=== PATIENT | male | born 1930 | race Caucasian/White ===

== ENCOUNTER 2018-01-31 08:20 | Inpatient (IN) | payer MEDICARE, OTHER ==
[2018-01-31] MEDS: IODIXANOL 320 MG/ML 10 ML VIAL (for Rad CT) IVCONTRAST (08:21)
[2018-01-31 09:17] LABS: AUTOMATED NEUTROPHIL # 15.5 TH/MM3 (1.8-7.7); BASOPHIL # 0.1 TH/MM3 (0-0.2); BASOPHIL % 0.6 % (0.0-2.0); EOSINOPHIL % 0.2 % (0.0-4.0); HEMATOCRIT 47.2 % (39.0-51.0); HEMO FLAGS DIFF FINAL; HEMOGLOBIN 15.4 GM/DL (13.0-17.0); LYMPH % 4.7 % (9.0-44.0); LYMPHOCYTE # 0.8 TH/MM3 (1.0-4.8); MEAN CELL VOLUME 95.4 FL (80.0-100.0); MEAN CORPUSCULAR HEMOGLOBIN 31.2 PG (27.0-34.0); MEAN CORPUSCULAR HGB CONC 32.7 % (32.0-36.0); MEAN PLATELET VOLUME 8.8 FL (7.0-11.0); MONOCYTE # 0.5 TH/MM3 (0-0.9); NEUT % 91.5 % (16.0-70.0); PLATELET COUNT 215 TH/MM3 (150-450); RED BLOOD COUNT 4.94 MIL/MM3 (4.50-5.90); RED CELL DISTRIBUTION WIDTH 15.2 % (11.6-17.2)
[2018-01-31 09:31] LABS: ALBUMIN 3.3 GM/DL (3.4-5.0); ANION GAP 15 MEQ/L (5-15); AST (GOT) 53 U/L (15-37); BICARBONATE 18.1 MEQ/L (21.0-32.0); BLOOD UREA NITROGEN 37 MG/DL (7-18); CALCIUM 9.2 MG/DL (8.5-10.1); CHLORIDE 113 MEQ/L (98-107); CREATININE 1.76 MG/DL (0.60-1.30); GLOMERULAR FILTRATION RATE 37 ML/MIN (>89); GLUCOSE,RANDOM 221 MG/DL (74-106); SODIUM (NA) 146 MEQ/L (136-145)
[2018-01-31 09:32] LABS: ALT (GPT) 27 U/L (12-78)
[2018-01-31 09:35] LABS: ALKALINE PHOSPHATASE 101 U/L (45-117); CREATINE KINASE 443 U/L (39-308); TOTAL BILIRUBIN ADULT 0.3 MG/DL (0.2-1.0); TOTAL PROTEIN 7.3 GM/DL (6.4-8.2)
[2018-01-31] MEDS: SODIUM CHLOR 0.9% 1000 ML INJ 1,000 ML IV (09:44)
[2018-01-31 09:54] LABS: B-TYPE NATRIURETIC PEPTIDE 174 PG/ML (0-100)
[2018-01-31 09:57] LABS: CKMB 26.6 NG/ML (0.5-3.6)
[2018-01-31 10:00] LABS: TROPONIN I 2.57 NG/ML (0.02-0.05)
[2018-01-31 10:00] LABS: LACTIC ACID SEPSIS PROTOCOL 6.7 mmol/L (0.4-2.0)
[2018-01-31 10:25] LABS: BACTERIA, URINE OCC /hpf; BILIRUBIN, URINE NEG (NEG); BLOOD, URINE NEG (NEG); COMMENT (UR) CATH-CULTURE IND; CULTURE IF INDICATED CATH CULTURE IND; GLUCOSE,URINE NEG (NEG); HYALINE CAST, URINE 2 /lpf (RARE); KETONE, URINE NEG (NEG); MUCUS URINE FEW /lpf (OCC); NITRITE,URINE POS (NEG); SQUAMOUS EPITHELIAL CELL URINE <1 /hpf (0-5); URINE COLOR YELLOW (YELLW/STRAW); URINE LEUKOCYTE ESTERASE LARGE (NEG)
[2018-01-31] MEDS ORDERED: HEPARIN-D5W 25,000 U/250 ML 250 ML IV (10:30)
[2018-01-31] MEDS: cefTRIAXone INJ 1,000 MG in SODIUM CHLORIDE 0.9% INJ 100 ML IV (10:41)
[2018-01-31] MEDS: ASPIRIN 81 MG CHEW TAB CHEW (10:41)
[2018-01-31 10:43] LABS: PROTHROMBIN TIME - PATIENT 10.6 SEC (9.8-11.6)
[2018-01-31 11:08] LABS: LACTIC ACID GHOST NOT REPORTABLE
[2018-01-31] MEDS: HEPARIN SODIUM - IV 10,000 UNITS/10 ML VIAL IV PUSH (11:34)
[2018-01-31] MEDS: HEPARIN-D5W 25,000 U/250 ML 250 ML IV (11:36)
[2018-01-31 11:39] LABS: BLOOD GAS BASE EXCESS -2.6 mmol/L (-2-2); BLOOD GAS CARBOXYHEMOGLOBIN 1.1 % (0-4); BLOOD GAS HCO3 21 mmol/L (22-26); BLOOD GAS METHEMOGLOBIN 0.7 % (0-2); BLOOD GAS O2 HGB SATURATION 89 % (90-100); BLOOD GAS OXYGEN CONTENT 17.9 Vol % (12.0-20.0); BLOOD GAS PCO2 35 mmHg (38-42); BLOOD GAS PO2 59 mmHG (61-120); BLOOD GAS TOTAL HGB 14.3 G/DL (12.0-16.0); CRITICAL VALUE YES; DRAW SITE LT RADIAL; FIO2 100 %; LITER FLOW 15 L/M; NUMBER OF ARTERIAL PUNCTURES 1; STAT YES; TEMP CORR TO 98.6; ULNAR PULSE PRESENT
[2018-01-31] MEDS ORDERED: SODIUM CHLOR 0.9% 1000 ML INJ 1,000 ML IV (12:18)
[2018-01-31] MEDS: AZITHROMYCIN INJ 500 MG in SODIUM CHLOR 0.9% 250 ML INJ 250 ML IV (12:21)
[2018-01-31] MEDS: RESP: ALBUTEROL 2.5 MG/IPRATROPIUM 0.5 MG NEB (SCH) NEB ×5 (12:30→23:52)
[2018-01-31] MEDS ORDERED: CHLORHEXIDINE GLUCONATE 2 % 1 PACK (2 CLOTHS) TOP (12:30)
[2018-01-31] MEDS ORDERED: RESP: ALBUTEROL 2.5 MG/IPRATROPIUM 0.5 MG NEB (PRN) INH (12:30)
[2018-01-31] MEDS ORDERED: NURSING INFORMATION XX (12:30)
[2018-01-31] MEDS ORDERED: MORPHINE SULFATE 4 MG/ML INJ IV PUSH (12:30)
[2018-01-31 12:46] LABS: HEMATOCRIT 45.7 % (39.0-51.0); HEMOGLOBIN 15.1 GM/DL (13.0-17.0); MEAN CELL VOLUME 94.5 FL (80.0-100.0); MEAN CORPUSCULAR HEMOGLOBIN 31.1 PG (27.0-34.0); MEAN PLATELET VOLUME 8.7 FL (7.0-11.0); PLATELET COUNT 221 TH/MM3 (150-450); RED BLOOD COUNT 4.84 MIL/MM3 (4.50-5.90); RED CELL DISTRIBUTION WIDTH 14.8 % (11.6-17.2); REVIEW FLAG FINAL; WHITE BLOOD COUNT 19.7 TH/MM3 (4.0-11.0)
[2018-01-31 13:03] LABS: LACTIC ACID SEPSIS REPEAT 2.4 mmol/L (0.4-2.0)
[2018-01-31 13:05] LABS: INTERNATIONAL NORMALIZED RATIO 1.1 RATIO; PROTHROMBIN TIME - PATIENT 10.8 SEC (9.8-11.6)
[2018-01-31] MEDS: ESMOLOL DRIP INJ PREMIX 250 ML IV (13:27)
[2018-01-31] MEDS ORDERED: LABETALOL HCL 100 MG/20 ML VIAL IV PUSH (14:00)
[2018-01-31] MEDS: MORPHINE SULFATE 4 MG/ML INJ IV PUSH (14:16)
[2018-01-31] MEDS: FUROSEMIDE 40 MG/4 ML VIAL IV PUSH ×2 (14:16→16:34)
[2018-01-31 14:39] LABS: CREATINE KINASE 2602 U/L (39-308)
[2018-01-31] MEDS: METOPROLOL TARTRATE 25 MG TAB PO ×3 (14:45→21:00)
[2018-01-31] MEDS ORDERED: DIGOXIN 0.5 MG/2 ML VIAL IV PUSH (15:00)
[2018-01-31 15:05] LABS: CKMB 313.2 NG/ML (0.5-3.6)
[2018-01-31 15:33] LABS: TROPONIN I GREATER THAN 40.00 NG/ML (0.02-0.05)
[2018-01-31] MEDS: DEXMEDETOMIDINE INJ 200 MCG in SODIUM CHLORIDE 0.9% INJ 50 ML IV ×2 (16:00→19:57)
[2018-01-31] MEDS: INSULIN ASPART SUPPLEMENTAL SCALE SQ ×2 (16:00→20:00)
[2018-01-31] MEDS ORDERED: HEPARIN SODIUM - IV 10,000 UNITS/10 ML VIAL IV PUSH ×2 (16:30)
[2018-01-31] MEDS: PHENYLEPHRINE HCL 10 MG/ML VIAL (16:57)
[2018-01-31] MEDS ORDERED: TERBUTALINE INJ 1 MG/ML AMP SQ (17:00)
[2018-01-31] MEDS ORDERED: PHENYLEPHRINE HCL 10 MG/ML VIAL (17:27)
[2018-01-31 18:10] LABS: APTT (PATIENT) 73.7 SEC (24.3-30.1)
[2018-01-31] MEDS: PHENYLEPHRINE INJ 80 MG in DEXTROSE 5% IN WATE 500 ML INJ 492 ML IV (19:00)
[2018-01-31] MEDS: CHLORHEXIDINE 0.12% (ORAL KIT) 15 ML CUP MT (20:00)
[2018-01-31] MEDS: FAMOTIDINE 20 MG/2 ML VIAL IV PUSH (20:29)
[2018-01-31] MEDS: methylPREDNISolone SOD SUCC 125 MG/2 ML VIAL IV PUSH (20:29)
[2018-01-31] MEDS: SODIUM CHLORIDE 0.9% FLUSH 10 ML FLUSH IV FLUSH (20:30)
[2018-01-31 21:48] LABS: CREATINE KINASE 4244 U/L (39-308)
[2018-01-31 21:55] LABS: TROPONIN I GREATER THAN 40.00 NG/ML (0.02-0.05)
[2018-01-31 22:19] LABS: CKMB 537.5 NG/ML (0.5-3.6)
[2018-01-31] MEDS: PRIMIDONE 50 MG TAB PO (22:27)
[2018-01-31 22:40] LABS: CKMB % 12.7 % (0.0-4.0)
[2018-01-31] MEDS: HALOPERIDOL LACTATE 5 MG/ML AMP IV PUSH (23:45)
[2018-02-01] MEDS: DEXMEDETOMIDINE INJ 200 MCG in SODIUM CHLORIDE 0.9% INJ 50 ML IV ×2 (00:42→02:32)
[2018-02-01 02:11] LABS: AUTOMATED NEUTROPHIL # 20.6 TH/MM3 (1.8-7.7); BASOPHIL % 0.2 % (0.0-2.0); HEMATOCRIT 44.8 % (39.0-51.0); HEMO FLAGS DIFF FINAL; HEMOGLOBIN 14.6 GM/DL (13.0-17.0); LYMPH % 2.9 % (9.0-44.0); LYMPHOCYTE # 0.6 TH/MM3 (1.0-4.8); MEAN CELL VOLUME 95.8 FL (80.0-100.0); MEAN CORPUSCULAR HEMOGLOBIN 31.1 PG (27.0-34.0); MEAN CORPUSCULAR HGB CONC 32.5 % (32.0-36.0); MEAN PLATELET VOLUME 8.7 FL (7.0-11.0); MONO % 4.8 % (0.0-8.0); MONOCYTE # 1.1 TH/MM3 (0-0.9); NEUT % 92.1 % (16.0-70.0); PLATELET COUNT 261 TH/MM3 (150-450); RED BLOOD COUNT 4.68 MIL/MM3 (4.50-5.90); RED CELL DISTRIBUTION WIDTH 15.5 % (11.6-17.2); WHITE BLOOD COUNT 22.4 TH/MM3 (4.0-11.0)
[2018-02-01 02:28] LABS: APTT (PATIENT) 60.5 SEC (24.3-30.1)
[2018-02-01 02:44] LABS: ALBUMIN 2.8 GM/DL (3.4-5.0); ALKALINE PHOSPHATASE 76 U/L (45-117); ALT (GPT) 178 U/L (12-78); ANION GAP 14 MEQ/L (5-15); AST (GOT) 900 U/L (15-37); BLOOD UREA NITROGEN 48 MG/DL (7-18); CALCIUM 8.2 MG/DL (8.5-10.1); CHLORIDE 112 MEQ/L (98-107); CREATININE 2.47 MG/DL (0.60-1.30); GLOMERULAR FILTRATION RATE 25 ML/MIN (>89); GLUCOSE,RANDOM 179 MG/DL (74-106); POTASSIUM 5.3 MEQ/L (3.5-5.1); SODIUM (NA) 145 MEQ/L (136-145); TOTAL BILIRUBIN ADULT 0.4 MG/DL (0.2-1.0); TOTAL PROTEIN 6.6 GM/DL (6.4-8.2)
[2018-02-01] MEDS: HALOPERIDOL LACTATE 5 MG/ML AMP IV PUSH (03:46)
[2018-02-01] MEDS: INSULIN ASPART SUPPLEMENTAL SCALE SQ ×4 (04:00→12:00)
[2018-02-01] MEDS ORDERED: CHLORHEXIDINE GLUCONATE 2 % 1 PACK (2 CLOTHS) TOP (04:00)
[2018-02-01] MEDS: RESP: ALBUTEROL 2.5 MG/IPRATROPIUM 0.5 MG NEB (SCH) NEB ×2 (04:33→08:00)
[2018-02-01] MEDS: FUROSEMIDE 40 MG/4 ML VIAL IV PUSH ×3 (05:45→08:28)
[2018-02-01] MEDS: PHENYLEPHRINE INJ 80 MG in DEXTROSE 5% IN WATE 500 ML INJ 492 ML IV ×2 (05:57→12:08)
[2018-02-01] MEDS: DEXMEDETOMIDINE INJ 1,000 MCG in SODIUM CHLOR 0.9% 250 ML INJ 240 ML IV (05:59)
[2018-02-01] MEDS ORDERED: LORazepam 2 MG/ML VIAL (07:33)
[2018-02-01] MEDS: MORPHINE SULFATE 4 MG/ML INJ IV PUSH (07:39)
[2018-02-01] MEDS ORDERED: LORazepam 2 MG/ML VIAL IV PUSH (08:00)
[2018-02-01] MEDS: CHLORHEXIDINE 0.12% (ORAL KIT) 15 ML CUP MT (08:00)
[2018-02-01] MEDS: ALBUMIN 25% INJ 100 ML IV (08:27)
[2018-02-01] MEDS: FAMOTIDINE 20 MG/2 ML VIAL IV PUSH (08:28)
[2018-02-01] MEDS: methylPREDNISolone SOD SUCC 125 MG/2 ML VIAL IV PUSH (08:28)
[2018-02-01] MEDS: SODIUM CHLORIDE 0.9% FLUSH 10 ML FLUSH IV FLUSH ×2 (08:28)
[2018-02-01] MEDS: FINASTERIDE 5 MG TAB PO (08:55)
[2018-02-01] MEDS: PRIMIDONE 50 MG TAB PO (08:55)
[2018-02-01] MEDS: ASPIRIN 81 MG CHEW TAB CHEW (08:55)
[2018-02-01] MEDS: METOPROLOL TARTRATE 25 MG TAB PO (08:55)
[2018-02-01] MEDS: cefTRIAXone INJ 1,000 MG in SODIUM CHLORIDE 0.9% INJ 100 ML IV (11:00)
[2018-02-01] MEDS: AZITHROMYCIN INJ 500 MG in SODIUM CHLOR 0.9% 250 ML INJ 250 ML IV (12:52)
== END 2018-02-01 13:01 | disposition expired | DRG 189 ==
LOC: NEPE 08:20 → NEDA 12:20 → HIME 15:20
PROC: 5A09357 Assistance with Respiratory Ventilation, Less than 24 Consecutive Hours, Continuous Positive Airway Pressure (ICD-10-PCS; principal; 2018-01-31)
DX: J96.01 Acute respiratory failure with hypoxia (principal); I21.4 Non-ST elevation (NSTEMI) myocardial infarction; R65.21 Severe sepsis with septic shock; I11.0 Hypertensive heart disease with heart failure; A41.9 Sepsis, unspecified organism; J18.9 Pneumonia, unspecified organism; N17.9 Acute kidney failure, unspecified; E87.2 Acidosis; I50.9 Heart failure, unspecified; N39.0 Urinary tract infection, site not specified; I48.92 Unspecified atrial flutter; I46.9 Cardiac arrest, cause unspecified; R00.0 Tachycardia, unspecified; E78.5 Hyperlipidemia, unspecified; F02.80 Dementia in other diseases classified elsewhere, unspecified severity, without behavioral disturbance, psychotic disturbance, mood disturbance, and anxiety; G30.9 Alzheimer's disease, unspecified; F41.9 Anxiety disorder, unspecified; I25.10 Atherosclerotic heart disease of native coronary artery without angina pectoris; I48.91 Unspecified atrial fibrillation; N40.0 Benign prostatic hyperplasia without lower urinary tract symptoms; M54.5 Low back pain; G89.29 Other chronic pain; Z89.511 Acquired absence of right leg below knee; Z79.82 Long term (current) use of aspirin; Z85.038 Personal history of other malignant neoplasm of large intestine; Z87.891 Personal history of nicotine dependence; I25.2 Old myocardial infarction; Z66 Do not resuscitate
CPT/HCPCS: 36600; 71045; 71275; 80053; 81001; 82550; 82552; 82805; 83605; 83880; 84484; 85025; 85027; 85610; 85730; 87040; 87077; 87086; 87186; 93005; 94002; 94640; 94664; 96361; 96365; 96367; 96375; 99291-25